=== PATIENT | male | born 1980 | race Hispanic/Latino ===

== ENCOUNTER 2024-07-11 15:14 | Inpatient (IN) | payer OTHER ==
[~2024-07-11] VITALS: Ht 175.3 cm; Wt 115.7 kg
[~2024-07-11 15:14] MED LIST: BLOOD GLUCOSE1 EAC1 XX; CLEOCIN HCL300 MG PO; COREG6.25 MG PO; HYDROCODON-ACE1 EAC9 PO; LANCET 30G-GLU1 EACH XX; LYRICA50 MG PO; METFORMIN HCL500 MG PO; NORVASC10 MG PO
[2024-07-11] MEDS: LACTATED RINGER'S 1,000 ML INJ ONE (15:50)
[2024-07-11] MEDS: KETOROLAC TROMETHAMINE 30 MG/ML VIAL IV ONE (15:51)
[2024-07-11] MEDS: ONDANSETRON HCL INJ 2MG/ML 2ML 2 MG/ML VIAL IV ONE (15:51)
[2024-07-11] MEDS: FAMOTIDINE 20 MG/2 ML VIAL IV ONE (15:51)
[2024-07-11] MEDS ORDERED: IOPAMIDOL 370 MG/ML 100 ML INFUS..BTL INJ ONE (17:09)
[2024-07-11] MEDS ORDERED: ZOLPIDEM TARTRATE 10 MG TAB PO PRN (18:30)
[2024-07-11] MEDS ORDERED: DIPHENHYDRAMINE HCL INJ 50 MG/ML VIAL IV PRN (18:30)
[2024-07-11] MEDS ORDERED: ENALAPRILAT IV INJ 1.25 MG/ML VIAL IV PRN (18:30)
[2024-07-11] MEDS ORDERED: DEXTROSE 50% SYRINGE 50 ML IV PRN (18:30)
[2024-07-11] MEDS ORDERED: CLONIDINE HCL 0.2 MG TAB PO PRN (18:30)
[2024-07-11] MEDS: FAMOTIDINE 20 MG TAB PO SCH (18:30)
[2024-07-11] MEDS ORDERED: ACETAMINOPHEN 325 MG TAB PO PRN (18:30)
[2024-07-11] MEDS: ASPIRIN 81 MG CHEW TAB PO ONE (18:31)
[2024-07-11] MEDS: LEVOFLOXACIN 500MG/D5W 100ML 100 ML IV ONE (18:45)
[2024-07-11 19:50] VITALS: PULSE 65; RESP 18; TEMP 98.9
[2024-07-11 20:30] VITALS: BP 129/90; PULSE 77; RESP 18; TEMP 98.1; O2SAT 98
[2024-07-11 21:00] VITALS: BP 129/90; PULSE 77; RESP 18; TEMP 98.1; O2SAT 98
[2024-07-11] MEDS: INSULIN REGULAR, HUMAN 100 UNIT/1 ML SQ SCH (21:33)
[2024-07-12] VITALS (7 sets, daily range): BP systolic 126–141; BP diastolic 83–93; PULSE 81–87; RESP 18–19; TEMP 98.1–99.4; O2SAT 95–99
[2024-07-12 05:14] LABS: BASOPHILS % 0.5 % (0.0-1.0); EOSINOPHILS # (AUTO) 0.2 (0.0-0.4); EOSINOPHILS % 1.7 % (0.0-6.0); HEMATOCRIT 45.2 % (38.2-49.6); HEMOGLOBIN 14.4 g/dL (14.0-18.0); LYMPHOCYTES # (AUTO) 2.1 (1.0-3.2); LYMPHOCYTES % 24.3 % (18.0-39.1); MEAN CORPUSCULAR HEMOGLOBIN 25.4 pg (28-32); MEAN CORPUSCULAR HGB CONC 31.9 g/dL (31-35); MEAN CORPUSCULAR VOLUME 79.9 fL (81-99); MONOCYTES # (AUTO) 0.7 (0.2-0.8); MONOCYTES % 8.3 % (4.4-11.3); NEUTROPHILS # (AUTO) 5.7 (2.1-6.9); NEUTROPHILS % 64.4 % (38.7-80.0); PLATELET COUNT 238 x10e3/uL (140-360); RED BLOOD COUNT 5.66 x10e6/uL (4.3-5.7); RED CELL DISTRIBUTION WIDTH 13.2 % (11.7-14.4); WHITE BLOOD COUNT 8.82 x10e3/uL (4.8-10.8)
[2024-07-12 05:40] LABS: CALCIUM 9.3 mg/dL (8.4-10.2); CHOL/HDL RATIO 5.7 (3.9-4.7); CREATININE, SERUM 0.93 mg/dL (0.72-1.25)
[2024-07-12 06:16] LABS: TROPONIN I 0.002 ng/mL (0-0.300)
[2024-07-12] MEDS: PREGABALIN 50 MG CAP PO SCH (08:50)
[2024-07-12] MEDS: LACTOBACILLUS ACIDOPHILUS CAPSULE PO SCH (08:50)
[2024-07-12] MEDS: CARVEDILOL 3.125 MG TAB PO SCH ×2 (08:51→21:00)
[2024-07-12] MEDS: ENOXAPARIN SODIUM INJ 100 MG/ML SYR SC SCH (08:52)
[2024-07-12] MEDS ORDERED: LANTUS 3ML100 UNITS/ SQ (08:56)
[2024-07-12] MEDS: LOSARTAN POTASSIUM 25 MG TAB PO SCH (12:22)
[2024-07-12] MEDS: VANCOMYCIN HCL 125 MG CAPSULE PO SCH ×2 (12:22→21:38)
[2024-07-12 13:55] LABS: CREATINE KINASE 54 IU/L (30-200)
[2024-07-12 14:03] LABS: TROPONIN I < 0.001 ng/mL (0-0.300)
[2024-07-12] MEDS: ALPRAZOLAM 0.25 MG TAB PO SCH (15:52)
[2024-07-12] MEDS: ENOXAPARIN SOD INJ 40 MG/0.4 ML SYR SC SCH (17:00)
[2024-07-12] MEDS ORDERED: LEVOFLOXACIN 500MG/D5W 100ML 100 ML IV SCH (18:30)
[2024-07-12] MEDS: INSULIN GLARGINE 100 UNITS/ML VIAL SQ SCH (21:43)
[2024-07-12] MEDS: HYDROXYZINE HCL 25 MG TAB PO SCH (23:14)
[2024-07-13] VITALS: BP 134/83; PULSE 85; RESP 20; TEMP 98.6; O2SAT 97
[2024-07-13 04:00] VITALS: BP 126/89; PULSE 79; RESP 18; TEMP 97.6; O2SAT 100
[2024-07-13 05:40] LABS: CREATINE KINASE 38 IU/L (30-200)
[2024-07-13 05:47] LABS: TROPONIN I < 0.001 ng/mL (0-0.300)
[2024-07-13 08:34] VITALS: BP 130/87; PULSE 100; RESP 18; TEMP 98; O2SAT 94
[2024-07-13 08:45] VITALS: BP 130/87; PULSE 100; RESP 18; TEMP 98; O2SAT 94
[2024-07-13] MEDS ORDERED: ZOLPIDEM TARTRATE 5 MG TAB PO PRN (10:15)
[2024-07-13] MEDS ORDERED: HYDRALAZINE HCL25 MG PO (10:50)
[2024-07-13 11:28] VITALS: BP 137/98; PULSE 95; RESP 17; TEMP 98.4; O2SAT 97
[2024-07-13] MEDS ORDERED: AMITRIPTYLINE HCL 10 MG TAB PO SCH (21:00)
== END 2024-07-13 11:50 | disposition home or self-care (01) | DRG 313 ==
LOC: FSED 15:20 → ERHOLD 18:21 → MED/SURG2 20:24 → OBSVTOIN 07-12 18:18
PROVIDERS: ADMIT Internal Medicine; ATTEND Internal Medicine
DX: R07.89 Other chest pain (principal); J18.9 Pneumonia, unspecified organism; L03.116 Cellulitis of left lower limb; T46.5X5A Adverse effect of other antihypertensive drugs, initial encounter; Y92.009 Unspecified place in unspecified non-institutional (private) residence as the place of occurrence of the external cause; E11.65 Type 2 diabetes mellitus with hyperglycemia; Z79.4 Long term (current) use of insulin; Z79.84 Long term (current) use of oral hypoglycemic drugs; K52.9 Noninfective gastroenteritis and colitis, unspecified; I10 Essential (primary) hypertension; I25.10 Atherosclerotic heart disease of native coronary artery without angina pectoris; I25.2 Old myocardial infarction; K76.0 Fatty (change of) liver, not elsewhere classified; K57.30 Diverticulosis of large intestine without perforation or abscess without bleeding; R16.1 Splenomegaly, not elsewhere classified; E66.9 Obesity, unspecified; Z68.37 Body mass index [BMI] 37.0-37.9, adult; H54.62 Unqualified visual loss, left eye, normal vision right eye; F41.9 Anxiety disorder, unspecified; F17.200 Nicotine dependence, unspecified, uncomplicated; Z59.6 Low income; Z86.16 Personal history of COVID-19; Z86.718 Personal history of other venous thrombosis and embolism; Z86.711 Personal history of pulmonary embolism; Z86.73 Personal history of transient ischemic attack (TIA), and cerebral infarction without residual deficits; Z79.899 Other long term (current) drug therapy
CPT/HCPCS: 0223U; 36415; 71260; 74176; 80048; 80053; 80061; 81003; 82550; 82553; 82948; 83036; 84484; 85025; 85379; 87324; 87449; 93005; 93306; 96372; 96374; 96375; 99252; 99284; G0378; J1650; J1815; J1885; J1956; J2405; J3410; Q9967